=== PATIENT | female | born 2000 | race Caucasian/White ===

== ENCOUNTER 2024-10-14 11:28 | Emergency (ER) | payer OTHER, SELFPAY ==
[2024-10-14 11:31] VITALS: BP 150/86
[2024-10-14] MEDS: ROBITUSSIN AC 10 ML PO (12:20)
[2024-10-14] MEDS: DELTASONE 50 MG PO (12:20)
[2024-10-14] MEDS: DUONEB 3 ML INH ×2 (12:20→12:34)
[2024-10-14 12:21] VITALS: BMI 20.8
[2024-10-14 12:23] VITALS: BP 107/92
[2024-10-14 13:00] VITALS: BP 137/68
--- NOTE | 2024-10-14 13:14 | ED.GENMED ---
History of Present Illness
General
Chief Complaint: Breathing Problem
Source: patient
Exam Limitations: none
Time Seen by Provider: 10/14/24 12:09
Nursing documentation reviewed up to this point in time: agreed with
History of Present Illness
History of Present Illness:
Patient with history of asthma, presents to ED secondary to nasal congestion, sore throat, headache, along with continual cough over the past 3 days. Patient states that her mother who recently traveled to [place], came down with illness first.
Denies fever or chills. Denies nausea, vomiting, or diarrhea. Denies loss of appetite. Denies rash. Denies neck pain. Denies decreased appetite. Patient has been using her inhaler at home without significant improvement in symptoms.
Review of Systems
Review of Systems
Allergies reviewed?: Yes
All Other Systems: ROS reviewed and negative except as documented in HPI and ROS
Constitutional: Reports no symptoms
EENT: Reports sore throat
Respiratory: Reports cough and trouble breathing
Cardiac: Reports no symptoms
ABD/GI: Reports no symptoms
Musculoskeletal: Reports no symptoms
Skin: Reports no symptoms
Neurological: Reports no symptoms
Phy Exam
Physical Exam
Physical Exam:
Physical Exam
General: no apparent distress, not acutely ill. afebrile.
Head: nc/at. eomi
Neck: supple. no meningeal signs. normal posterior pharynx. no stridor
Heart: s1/s2 regular rate and rhythm, no murmur. equal radial pulses.
Lungs: no acute respiratory distress. mild diffuse expiratory wheezing noted.
Abdomen: normal bowel sounds. not tender.
Neuro: alert and oriented. no focal neurological deficits
Skin: no rash
Psychiatric: well kept. interactive and cooperative
Extremities: no edema. no calf tenderness.
Course
Orders/Labs/Results
Orders:
Orders
10/14/24 12:15
Guaifenesin/Codeine Solution [Robitussin AC] 10 ml PO NOW STA
Ipratropium/Albuterol Sulfate [Duoneb] 3 ml INH R NOW ONE
Ipratropium/Albuterol Sulfate [Duoneb] 3 ml INH R NOW STA
Prednisone [Deltasone] 50 mg PO NOW STA
Vital Signs
Initial and Last Documented VS:
Initial Vital Signs
Temp Pulse Resp BP Pulse Ox
97.8 F 105 18 150/86 98
10/14/24 11:31 10/14/24 11:31 10/14/24 11:31 10/14/24 11:31 10/14/24 11:31
Last Documented Vital Signs
Temp Pulse Resp BP Pulse Ox
97.8 F 97 18 137/68 95
10/14/24 11:31 10/14/24 13:25 10/14/24 13:25 10/14/24 13:25 10/14/24 13:25
MDM/Problems Addressed
MDM/Problems Addressed:
Patient reports significant improvement after the treatment. History and exam consistent with likely an acute bronchitis with wheezing, with underlying asthma. Otherwise, patient remains afebrile, hemodynamically stable, and without any
significant acute respiratory distress, at time of discharge. Patient will be started on prednisone, cough syrup, as well as Z-Praneeth, with recommendation to continue inhaler treatment at home. Advised PCP follow-up as outpatient, or return to ED
with worsening symptoms.
*Critical Care Note
Total Time (30-74mins, 75-104mins- exclusive of procedures): Not Applicable
ED Attending Note
-
Portions of this chart may have been created with voice recognition software.� Occasional wrong word or��sound alike� substitutions may have occurred due to the inherent limitations of voice recognition software.
Discharge Plan
Departure
Patient Disposition: Home (Routine Discharge)
Date of Disposition: 10/14/24
Time of Disposition: 13:17
Patient with high blood pressure during this ER visit?: Yes
Discharge Problem:
Asthma exacerbation
Instructions: Asthma, Adult ED
Prescriptions:
New
prednisone 50 mg Tablet
50 mg PO DAILY Qty: 2 0RF
Robitussin Cough-Sore Throat 325-10 mg/10 mL liquid
20 ml PO Q6HPRN PRN (Reason: cough) Qty: 118 0RF
azithromycin [Zithromax Z-Praneeth] 250 mg tablet
250 mg PO DAILY 5 Days Qty: 6 0RF
Referrals:
Matt Topete DO [Family Provider] -
Activity Restrictions/Additional Instructions:
As discussed, please follow-up with your primary care physician for reevaluation. Your prescriptions have been sent electronically to [facility] pharmacy in [place].
Interventions
Interventions:
*Risk Screen - Suicide Last Done: 10/14/24 11:31
*General Assessment Last Done: 10/14/24 11:31
*Neglect/Abuse Screening Last Done: 10/14/24 11:31
ED- Fall Risk Assessment Last Done: 10/14/24 12:22
*ED COVID-19 Vaccine History Last Done: 10/14/24 12:21
*Nursing Disposition Last Done: 10/14/24 13:27
ED- Cardiac Assessment Last Done: 10/14/24 12:23
ED- Pulmonary Assessment Last Done: 10/14/24 12:23
Discharge Date and Time
Discharge Date/Time: 10/14/24 13:30
Print Language: PERSIAN
[2024-10-14 13:25] VITALS: BP 137/68
== END 2024-10-14 13:30 | disposition home or self-care (01) ==
LOC: EMR 11:28
PROVIDERS: EMERGENCY PHYSICIAN Emergency Medicine; FAMILY PHYSICIAN Family Medicine
DX: J45.901 Unspecified asthma with (acute) exacerbation (principal); R03.0 Elevated blood-pressure reading, without diagnosis of hypertension
CPT/HCPCS: 99284; 94640